=== PATIENT | male | born 1955 | race Caucasian/White ===

== ENCOUNTER 2018-01-06 19:34 | Emergency (ER) | payer MEDICAID ==
[~2018-01-06] VITALS: Ht 185.4 cm; Wt 113.4 kg
[2018-01-06 19:48] VITALS: BP 159/98
--- NOTE | 2018-01-06 20:17 | ER.PDOC ---
General Chief Complaint: Abdomen Pain Stated Complaint: PULLED ABD MUSCLES Time seen by MD: 20:08 Source: patient Exam Limitations: no limitations History of Present Illness Initial Comments 62 year old white male comes in with a history of pulled muscle on his anterior abdominal wall. Initial story was doing some yardwork for his mother in law today when he caused pain on midline abdominal area. Reports increasing pain. No nausea, no vomiting. Reports of anaphylactic reaction to NSAIDS and tramadol. [employer] website review indicated recent rx for Tylenol #3. When confronted with this, patient also admit having chronic back pain. I got the impression that his midline abdominal problem has been going on for a while and he was advised to seek consult with a surgeon in [place]. Severity/Quality: severe Radiation: no radiation Associated Symptoms: back pain Exacerbated by: walking, cough Allergies: Coded Allergies: NSAIDS (Non-Steroidal Anti-Inflamma (Unverified Allergy, Unknown, SWELLING , TONGUE SWELLING, 01/06/18) ketorolac (Unverified Allergy, Unknown, TONGUE SWELLING, SWELLING, 01/06/18 ) tramadol (Unverified Allergy, Unknown, TONGUE SWELLING, SWELLING, 01/06/18) Vital Signs First Vital Signs Date Time Temp Pulse Resp B/P (MAP) Pulse Ox O2 Delivery O2 Flow Rate FiO2 01/06/18 19:42 98.0 94 18 98.0 01/06/18 19:42 98 Room Air 01/06/18 19:48 159/98 (118) Last Vital Signs Date Time Temp Pulse Resp B/P (MAP) Pulse Ox O2 Delivery O2 Flow Rate FiO2 01/06/18 19:48 98.0 94 18 159/98 (118) 98 Room Air 98.0 Past Medical History Medical History: hypertension, other (back pain) Surgical History: shoulder, other Social History Smoking: cigarettes, less than 1 pack/day Alcohol Use: none Drug Use: none Constitutional: no symptoms reported EENTM: no symptoms reported Respiratory: no symptoms reported Cardiovascular: no symptoms reported Gastrointestinal: see HPI Genitourinary: no symptoms reported Musculoskeletal: see HPI Skin: no symptoms reported Psychiatric/Neurological: no symptoms reported Endocrine: no symptoms reported Physical Exam General Appearance: No Apparent Distress, WD/WN HEENT: PERRL/EOMI, Normal ENT Inspection, TMs Normal, Pharynx Normal Neck: Non-Tender, Full Range of Motion, Supple, Normal Inspection Respiratory: chest non-tender, lungs clear, normal breath sounds, no respiratory distress, no accessory muscle use Cardiovascular: Normal Peripheral Pulses, Regular Rate, Rhythm, No Edema, No Gallop, No JVD, No Murmur Gastrointestinal: Normal Bowel Sounds, Non Tender, Soft, Other (diastasis recti ) Back: Normal Inspection, No CVA Tenderness, No Vertebral Tenderness Extremities: Normal Range of Motion, Non-Tender, Normal Inspection, No Pedal Edema, No Calf Tenderness, Normal Capillary Refill, Pelvis Stable 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 NML as Tested, No Motor/Sensory Deficits, Alert, Normal Mood/Affect, Oriented x 3 Skin: Normal Color, Warm/Dry Lymphatic: No Adenopathy Course Sepsis Screening Results: Posi: POSITIVE SEPSIS RISK Vitals & review Data Vital Sign - Last 24 Hours 01/06/18 01/06/18 01/06/18 19:42 19:42 19:48 Temp 98.0 98.0 98.0 98.0 98.0 98.0 Pulse 94 94 94 Resp B/P (MAP) 159/98 (118) Pulse Ox 98 98 O2 Delivery Room Air Room Air Departure Time of Disposition: 20:23 Disposition: 01 HOME, SELF-CARE Impression: Primary Impression: Diastasis recti Additional Impression: Chronic back pain Condition: Stable Referrals: PCP,UNKNOWN (PCP) PRIMARY CARE PROVIDER Comments Robaxin RTER prn Follow up PCP Tylenol #3 # 15 Duration or Time Spent with Pa: 20 Problem Qualifiers Additional Impression: Chronic back pain Back pain location: low back pain Back pain laterality: unspecified Sciatica presence: unspecified whether sciatica present Qualified Codes: M54.5 - Low back pain; G89.29 - Other chronic pain MAYTE DE LEON MD Jan 06, 2018 20:17
[2018-01-06] MEDS ORDERED: NORFLEX IM STA (20:26)
[2018-01-06] MEDS ORDERED: NORFLEX ONE (20:31)
--- NOTE | 2018-01-06 20:45 | NUR ---
SHOT TIME PT REQUESTS TO LEAVE PRIOR TO SHOT TIME DUE TO PHARMACY CLOSING.
--- NOTE | 2018-01-06 20:45 | NUR ---
UPDATE PT STATES "I'M NOT ALLERGIC TO THE SHOT. I JUST REALLY NEED TO MAKE IT TO THE PHARMACY BEFORE THEY CLOSE. MY TONGUE ISN'T SWELLING OR ANYTHING. IF I WAS GONNA HAVE A REACTION IT WOULD BY NOW."
[2018-01-06 20:48] VITALS: BP 159/98
== END 2018-01-06 20:45 | disposition home or self-care (01) ==
LOC: ER 19:34
DX: M62.08 Separation of muscle (nontraumatic), other site (principal); G89.29 Other chronic pain; M54.5 Low back pain; F17.210 Nicotine dependence, cigarettes, uncomplicated; I10 Essential (primary) hypertension; Z98.890 Other specified postprocedural states; Z88.6 Allergy status to analgesic agent
CPT/HCPCS: 96372; 99283; J2360